=== PATIENT | male | born 1985 | race Caucasian/White ===

== ENCOUNTER 2019-01-18 22:57 | Emergency (ER) | payer SELFPAY ==
[~2019-01-18] VITALS: Ht 165.1 cm; Wt 90.7 kg
[2019-01-18 23:29] VITALS: BP 112/76
== END 2019-01-19 00:01 | disposition left against medical advice (07) ==
LOC: ER 23:00
DX: R51 Headache (principal); Z53.21 Procedure and treatment not carried out due to patient leaving prior to being seen by health care provider; Y08.89XA Assault by other specified means, initial encounter; Y93.89 Activity, other specified; Y99.8 Other external cause status; Y92.89 Other specified places as the place of occurrence of the external cause
CPT/HCPCS: 70486